=== PATIENT | female | born 1990 | race Caucasian/White ===

== ENCOUNTER 2024-06-03 22:09 | Inpatient (IN) | payer MEDICAID, OTHER ==
[~2024-06-03] VITALS: Ht 157.5 cm; Wt 57.6 kg
[2024-06-03 22:36] LABS: HEMATOCRIT 38.2 % (36.0-47.0); HEMOGLOBIN 12.6 g/dl (12.0-15.5); MEAN CORPUSCULAR HEMOGLOBIN 27.3 pg (27.0-33.0); MEAN CORPUSCULAR VOLUME 82.7 fl (80.0-96.0); PLATELET COUNT, AUTOMATED 346 10^3/uL (150-450); RED BLOOD COUNT 4.62 10^6/uL (4.00-5.40); WHITE BLOOD COUNT 11.8 10^3/uL (4.0-10.0)
[2024-06-03 22:56] LABS: CANNABINOIDS URINE NEGATIVE (NEGATIVE); PHENCYCLIDINE URINE NEGATIVE (NEGATIVE)
[2024-06-03 22:57] LABS: BARBITURATES URINE NEGATIVE (NEGATIVE); BENZODIAZEPINES URINE NEGATIVE (NEGATIVE); COCAINE METABOLITE URINE NEGATIVE (NEGATIVE); METHADONE URINE NEGATIVE (NEGATIVE); OPIATES URINE NEGATIVE (NEGATIVE)
[2024-06-03 22:58] LABS: AMPHETAMINES LEVEL URINE POSITIVE (NEGATIVE)
[2024-06-03 22:59] LABS: ETHYL ALCOHOL (ETHANOL) < 0.003 % (0.000-0.010)
[2024-06-03 23:00] LABS: SALICYLATE LEVEL < 3.0 MG/DL (<30)
[2024-06-03 23:01] LABS: ALBUMIN 3.7 G/DL (3.2-5.2); ALKALINE PHOSPHATASE 73 U/L (35-104); ALT/SGPT 14 U/L (7.0-40); AST/SGOT 9 U/L (<34); BILIRUBIN,DIRECT 0.1 MG/DL (<0.4); BILIRUBIN,TOTAL 0.3 MG/DL (0.3-1.2); BLOOD UREA NITROGEN 7 MG/DL (9-23); CALCIUM LEVEL 9.6 MG/DL (8.5-10.1); CARBON DIOXIDE LEVEL 26 MMOL/L (20-31); CHLORIDE LEVEL 109 MMOL/L (98-107); CREATININE FOR GFR 0.73 MG/DL (0.55-1.30); GLOMERULAR FILTRATION RATE > 60.0 (>60); GLUCOSE, FASTING 98 MG/DL (60-100); POTASSIUM SERUM 3.6 MMOL/L (3.5-5.1); SODIUM LEVEL 140 MMOL/L (136-145); TOTAL PROTEIN 7.1 G/DL (5.7-8.2)
[2024-06-03 23:03] LABS: THYROID STIMULATING HORMONE 2.219 uIU/ML (0.55-4.78)
[2024-06-04] MEDS ORDERED: HYDR50CA2 PO (00:30)
[2024-06-04] MEDS ORDERED: BUSP5TA PO (00:30)
[2024-06-04] MEDS ORDERED: ARIP1TAB6 PO (00:30)
[2024-06-04] MEDS ORDERED: OLANZapine ORAL DISINTEGRATING TAB 5MG PO PRN (00:30)
[2024-06-04] MEDS ORDERED: TRAZ-252 PO (00:30)
[2024-06-04] MEDS ORDERED: diphenhydrAMINE 25MG CAP PO PRN (00:30)
[2024-06-04] MEDS ORDERED: MAALOX 30 ML SUSP *UDC PO PRN (00:30)
[2024-06-04] MEDS ORDERED: ACETAMINOPHEN 325 MG TAB PO PRN (00:30)
[2024-06-04] MEDS ORDERED: IBUPROFEN 400MG TAB PO PRN (00:30)
[2024-06-04] MEDS ORDERED: LORazepam 1 MG TAB PO PRN (00:30)
[2024-06-04] MEDS ORDERED: MOM 30ML SUSPENSION UDC PO PRN (00:30)
[2024-06-04] MEDS ORDERED: HOME MED LIST COMPLETE! XX SCH (00:35)
[2024-06-04 02:31] VITALS: BP 100/61; TEMP 98.1; O2SAT 97
[2024-06-04 06:18] VITALS: BP 96/53; TEMP 97.8; O2SAT 99
[2024-06-04] MEDS: hydrOXYzine 50 MG TAB PO PRN (15:54)
[2024-06-04 15:59] VITALS: BP 104/70; TEMP 97.9; O2SAT 100
[2024-06-04] MEDS ORDERED: NICOTINE 14 MG/24 HR TRANSDERMAL TD SCH (21:00)
[2024-06-04] MEDS: busPIRone 5 MG TAB PO SCH (21:05)
[2024-06-04] MEDS: traZODone 50 MG TAB PO PRN (21:05)
[2024-06-05 06:28] VITALS: BP 97/56; TEMP 98.3; O2SAT 98
[2024-06-05] MEDS: NICOTINE 14 MG/24 HR TRANSDERMAL TD PRN (11:41)
[2024-06-05] MEDS: LIDOCAINE 5% (LIDODERM) PATCH TD SCH (13:44)
[2024-06-05 15:24] VITALS: BP 108/59; TEMP 98.6; O2SAT 100
[2024-06-06 06:44] VITALS: BP 98/53; TEMP 97.1; O2SAT 96
[2024-06-06] MEDS ORDERED: ARIP1TAB6 PO (09:46)
[2024-06-06] MEDS ORDERED: BUSP5TA PO (09:46)
== END 2024-06-06 13:09 | disposition home or self-care (01) | DRG 755 ==
LOC: M ED 22:09 → M ED INP 06-04 00:26 → M PSY 06-04 02:20
PROVIDERS: ADMIT Psychiatry & Neurology Psychiatry; ATTEND Psychiatry & Neurology Psychiatry
DX: F43.10 Post-traumatic stress disorder, unspecified (principal); R45.851 Suicidal ideations; F31.9 Bipolar disorder, unspecified; F60.89 Other specific personality disorders; F15.10 Other stimulant abuse, uncomplicated; Z63.5 Disruption of family by separation and divorce; Z62.810 Personal history of physical and sexual abuse in childhood; Z62.811 Personal history of psychological abuse in childhood; Z81.3 Family history of other psychoactive substance abuse and dependence; Z91.51 Personal history of suicidal behavior